=== PATIENT | female | born 1995 | race Caucasian/White ===

== ENCOUNTER 2021-02-12 16:39 | Emergency (ER) | payer MEDICAID, OTHER ==
[~2021-02-12] VITALS: Ht 157.5 cm; Wt 81.6 kg
[~2021-02-12 16:39] MED LIST: DOCU-299 PO; FERR-15 PO; FERR325E14 PO; IBUP-974 PO; NITR100C7 PO
[2021-02-12 16:45] VITALS: BP 110/80
--- NOTE | 2021-02-12 17:02 | NUR ---
25 Y/O FEMALE C/O RASH SINCE SATURDAY, PT STATE RASH BEGAN AT [facility] ON HER FEET AND THEN TRANSFERRED TO HER ENTIRE BODY. PT ALSO C/O SORE THROAT THAT HAS DEVELOPED SINCE RASH. DENIES ANY SOB OR CHEST PAIN. DENIES ANY FEVER OR FLU LIKE SYMPTOMS. NO PMH NKDA
--- NOTE | 2021-02-12 17:30 | NUR ---
PT ambulated to bed 12.
--- NOTE | 2021-02-12 17:50 | NUR ---
DR. GOODE AT BEDSIDE EVALUATING PT
[2021-02-12] MEDS ORDERED: PRED20TA5 PO (18:09)
[2021-02-12] MEDS ORDERED: ATA10 PO (18:09)
[2021-02-12] MEDS ORDERED: predniSONE 20 MG TAB PO ONE (18:10)
[2021-02-12 18:20] VITALS: BP 110/80
--- NOTE | 2021-02-12 18:20 | NUR ---
Patient discharged with v/s stable. Written and verbal after care instructions given and explained. Patient alert, oriented and verbalized understanding of instructions. Ambulatory with steady gait. All questions addressed prior to discharge. ID band removed. Patient advised to follow up with PMD. Rx of HYDROXYZINE, PREDNISONE given. Patient educated on indication of medication including possible reaction and side effects. Opportunity to ask questions provided and answered.
== END 2021-02-12 18:20 | disposition home or self-care (01) ==
LOC: MED 16:39
DX: L50.9 Urticaria, unspecified (principal); Z79.899 Other long term (current) drug therapy
CPT/HCPCS: 99283; J7512

== ENCOUNTER 2021-03-31 10:08 | Emergency (ER) | payer OTHER ==
[~2021-03-31] VITALS: Ht 160 cm; Wt 80.3 kg
[~2021-03-31 10:08] MED LIST changes: +ATA10 PO; +PRED20TA5 PO
[2021-03-31 10:21] VITALS: BP 132/78
[2021-03-31 10:51] LABS: BASOPHILS % (AUTO) 0.5 % (0.0-2.0); EOSINOPHILS # (AUTO) 0.2 K/uL (0-0.4); EOSINOPHILS % (AUTO) 2.8 % (0.0-4.0); HEMOGLOBIN 13.8 g/dL (12.0-16.0); LYMPHOCYTES # (AUTO) 0.9 K/uL (2.5-16.5); MEAN CORPUSCULAR HEMOGLOBIN 29 pg (27-31); MEAN CORPUSCULAR HGB CONC 34 g/dL (33-37); MEAN CORPUSCULAR VOLUME 85.5 fL (80-94); MONOCYTES # (AUTO) 0.8 K/uL (0.8-1.0); MONOCYTES % (AUTO) 9.8 % (1.7-9.3); NEUTROPHILS # (AUTO) 5.9 K/uL (1.8-7.7); NEUTROPHILS % (AUTO) 74.9 % (42.2-75.2); PLATELET COUNT (AUTO) 285 K/uL (140-450); RED BLOOD CELL COUNT(AUTO) 4.79 MIL/uL (4.20-5.40); WHITE BLOOD COUNT (AUTO) 7.8 K/uL (4.8-10.8)
[2021-03-31 11:07] LABS: ALBUMIN 3.8 g/dL (3.4-5.0); ANION GAP 9.7 (8-16); CARBON DIOXIDE 27.5 mmol/L (21-32); CREATININE 0.6 mg/dL (0.6-1.3); POTASSIUM 3.2 mmol/L (3.5-5.1); TOTAL BILIRUBIN 0.5 mg/dL (0.0-1.0)
[2021-03-31 12:37] VITALS: BP 136/72
[2021-03-31] MEDS ORDERED: POTASSIUM CHLORIDE 10 MEQ TABER PO SCH (13:00)
== END 2021-03-31 12:37 | disposition home or self-care (01) ==
LOC: MED 10:08
DX: O26.891 Other specified pregnancy related conditions, first trimester (principal); R19.7 Diarrhea, unspecified; R50.9 Fever, unspecified; Z3A.01 Less than 8 weeks gestation of pregnancy; Z20.822 Contact with and (suspected) exposure to COVID-19
CPT/HCPCS: 36415; 80053; 81002; 81025; 83690; 84702; 85025; 99283